=== PATIENT | male | born 1985 | race American Indian/Alaskan Native ===

== ENCOUNTER 2021-09-18 13:00 | Emergency (ER) | payer SELFPAY ==
[2021-09-18 13:12] VITALS: BP 153/101
[2021-09-18 14:12] LABS: Basophils % (Auto) 0.7 % (0.0-1.8); Eosinophils # (Auto) 0.2 K/mm3 (0.0-0.4); Eosinophils % (Auto) 5.5 % (0.0-4.3); Hematocrit 42.6 % (35.5-45.6); Hemoglobin 14.2 gm/dl (11.8-15.2); Lymphocytes # (Auto) 1.8 K/mm3 (1.2-5.4); Lymphocytes % (Auto) 43.4 % (13.4-35.0); Mean Corpuscular HGB Conc 33 % (32-34); Mean Corpuscular Volume 83 fl (84-94); Monocytes # (Auto) 0.4 K/mm3 (0.0-0.8); Monocytes % (Auto) 9.3 % (0.0-7.3); Platelet Count 277 K/mm3 (140-440); Red Blood Count 5.12 M/mm3 (3.65-5.03); Red Cell Distribution Width 13.5 % (13.2-15.2)
[2021-09-18 14:39] LABS: Alanine Aminotransferase 41 units/L (7-56); Albumin 4.4 g/dL (3.9-5); BUN/Creatinine Ratio 11; Blood Urea Nitrogen 12 mg/dL (9-20); Hemolysis Index 0
--- NOTE | 2021-09-19 09:06 | Electrocardiograph Report ---
[facility] Test Date: 2021-09-18 Test Time: 13:19:18 Pat Name: VIBHA COREAS Department: Room: Gender: M Hotel Assistant General Manager: VENU : 1985 Requested By: SCOTTY CLAROS Order Number: [id number] Reading MD: Azael Borjas Measurements Intervals [place] Rate: 95 P: 30 [place]: 165 QRS: -31 QRSD: 97 T: 48 QT: 353 QTc: 444 Interpretive Statements Sinus rhythm Left axis deviation No previous ECG available for comparison Electronically Signed On 09-19-2021 9:06:01 EDT by Azael Borjas
== END 2021-09-18 23:31 | disposition left against medical advice (07) ==
LOC: ED 13:00
DX: R00.0 Tachycardia, unspecified (principal); Z53.21 Procedure and treatment not carried out due to patient leaving prior to being seen by health care provider
CPT/HCPCS: 36415; 80053; 84484; 85025; 93005